=== PATIENT | female | born 1940 | race Caucasian/White ===

== ENCOUNTER 2024-02-28 17:50 | Emergency (ER) | payer MEDICARE ==
[~2024-02-28] VITALS: Ht 157.4 cm; Wt 52.6 kg
[2024-02-28] MEDS ORDERED: methylPREDNISolone sod succ 125 MG VIAL IV ONE (18:15)
[2024-02-28] MEDS ORDERED: Albuterol Sulf/Ipratropium 3 ML VIAL NEB ONE (18:15)
[2024-02-28] MEDS ORDERED: hydrOXYzine pamoate 25 MG CAP PO ONE (18:30)
[2024-02-28 18:39] LABS: BASO % 0.2 % (0.0-1.0); EOS % 0.1 % (1.0-4.0); HEMATOCRIT 43.6 % (37.0-47.0); MEAN CELL VOLUME 96.5 fl (81.0-99.0); MEAN CORPUSCULAR HGB 31.4 pg (27.0-31.0); MEAN CORPUSCULAR HGB CONC 32.6 g/dl (33.0-37.0); MEAN PLATELET VOLUME 10.9 fl (9.6-12.3); MONO # 0.9 10*3/uL (0.1-1.0); MONO % 7.7 % (3.0-9.0); NEUT # 8.5 10*3/uL (2.3-7.9); NEUT % 72.5 % (47.0-73.0); PLATELET COUNT AUTOMATED 195 10*3/uL (130-400); RED BLOOD COUNT 4.52 10*6/uL (4.10-5.10); RED CELL DISTRI WIDTH 11.9 % (0-14.5); WHITE BLOOD COUNT 11.8 10*3/uL (4.8-10.8)
[2024-02-28 18:58] LABS: BUN 7 mg/dl (9-23); CHLORIDE 98 mmol/L (98-107); POTASSIUM 4.1 mmol/L (3.4-5.1)
== END 2024-02-28 21:56 | disposition left against medical advice (07) ==
LOC: ED 17:50
PROVIDERS: Physician Assistant Medical
DX: J96.00 Acute respiratory failure, unspecified whether with hypoxia or hypercapnia (principal); Z20.822 Contact with and (suspected) exposure to COVID-19; Z53.29 Procedure and treatment not carried out because of patient's decision for other reasons; F17.210 Nicotine dependence, cigarettes, uncomplicated